=== PATIENT | female | born 1965 | race African-American/Black ===

== ENCOUNTER 2018-02-25 08:58 | Emergency (ER) | payer MEDICARE, MEDICAID ==
[~2018-02-25] VITALS: Ht 157.5 cm; Wt 64.3 kg
[2018-02-25 08:59] VITALS: BP 160/103
[2018-02-25] MEDS ORDERED: ketorolac trometh inj. 60 MG/2 ML VIAL IM ONE (09:35)
[2018-02-25] MEDS ORDERED: HYDR-4353 PO (09:50)
[2018-02-25] MEDS ORDERED: ORPH100T2 PO (09:50)
== END 2018-02-25 10:29 | disposition home or self-care (01) ==
LOC: ER 08:58
DX: G89.29 Other chronic pain (principal); M54.41 Lumbago with sciatica, right side; F17.200 Nicotine dependence, unspecified, uncomplicated; F12.90 Cannabis use, unspecified, uncomplicated; Z88.6 Allergy status to analgesic agent; Z88.5 Allergy status to narcotic agent; Z79.899 Other long term (current) drug therapy; Z59.0 Homelessness; Z56.0 Unemployment, unspecified
CPT/HCPCS: 96372; 99283; J1885